=== PATIENT | female | born 1970 | race Caucasian/White ===

== ENCOUNTER 2019-07-20 07:26 | Outpatient (CLI) | payer OTHER, SELFPAY ==
--- NOTE | 2019-07-20 07:36 | MM_ITS ---
WS: [id number] BILATERAL SCREENING DIGITAL MAMMOGRAM WITH CAD HISTORY: SCREENING COMPARISON: 07/04/2017, 06/09/2016 and 09/08/2015 Bilateral CC and MLO views submitted. Computer aided detection analyzed. Breast composition: There are scattered areas of fibroglandular density. No suspicious masses, microc alcifications or architectural distortion. Long-term stability of the nodule in the RIGHT breast near 9:00. No suspicious masses or calcifications. MM/[place] [id number] IMPRESSION: BI-RADS: 2-Benign FOLLOW UP: 1 Year Follow-up
== END 2019-07-20 07:27 | disposition home or self-care (01) ==
LOC: RADSHAW 07:35
PROVIDERS: Family Provider Family Medicine; PCP Family Medicine; Visit Provider Nurse Practitioner Women's Health
DX: Z12.31 Encounter for screening mammogram for malignant neoplasm of breast (principal)
CPT/HCPCS: 77067

== ENCOUNTER 2020-09-09 10:56 | Outpatient (CLI) | payer OTHER, SELFPAY ==
--- NOTE | 2020-09-09 10:59 | MM_ITS ---
WS: [id number] SCREENING DIGITAL MAMMOGRAM WITH CAD HISTORY: SCREENING COMPARISON: 07/20/2019, 07/04/2017 Bilateral CC and MLO views submitted. Computer aided detection analyzed. Breast composition: The breasts are heterogeneously dense, which may obscure small masses. Asymmetry measuring 6 mm along the inferior LEFT breast seen only on the lateral projection. Favor this is prob ably fibroglandular superimposed tissue. MM/[place] [id number] IMPRESSION: BI-RADS: 0-Incomplete: Need additional imaging evaluation FOLLOW UP: Need Additional Imaging LEFT breast: Spot compression views ( MLO). True ML. Ultrasound to follow if ab normality persists.
== END 2020-09-09 10:57 | disposition home or self-care (01) ==
LOC: RADSHAW 10:58
PROVIDERS: Family Provider Family Medicine; PCP Family Medicine; Visit Provider Family Medicine
DX: Z12.31 Encounter for screening mammogram for malignant neoplasm of breast (principal)
CPT/HCPCS: 77067

== ENCOUNTER 2020-09-11 15:18 | Outpatient (CLI) | payer OTHER, SELFPAY ==
--- NOTE | 2020-09-11 15:27 | XR_ITS ---
WS: [id number] Exam: XR acute abdomen series [id number] Date/Time of Exam: 09/11/2020 3:27 PM Reason For Exam: EPIGASTRIC ABDOMINAL PAIN PA chest. The lungs are clear and fully inflated. Normal cardiomediastinal structures and bony elemen ts. Flat and erect views of the abdomen demonstrate no bowel obstruction or free air. Visualized orga n margins are intact. XR/XR acute abdomen series [id number] IMPRESSION: 1. Normal chest. 2. No acute abdominal process.
== END 2020-09-11 15:19 | disposition home or self-care (01) ==
PROVIDERS: PCP Family Medicine; Visit Provider Family Medicine
DX: R10.13 Epigastric pain (principal)
CPT/HCPCS: 74022

== ENCOUNTER 2020-09-25 09:32 | Outpatient (CLI) | payer OTHER, SELFPAY ==
--- NOTE | 2020-09-25 09:36 | US_ITS ---
WS: [id number] ADDITIONAL VIEWS LEFT MAMMOGRAM LEFT BREAST ULTRASOUND HISTORY: ABNORMAL MAMMOGRAM COMPARISON: 09/09/2020, 07/20/2019, 07/04/2017 LEFT MAMMOGRAM: Spot compression views and true ML. 2 nodules are now identified in the lower LEFT breast. These are not optimally seen on the CC project ion. Larger nodule posteriorly is mildly ovoid measuring 9 mm. Smaller nodule measuring 8 mm more ant eriorly. Both of these are slightly ovoid. LEFT BREAST ULTRASOUND 2-D and color Doppler imaging submitted. Ultrasound at 8:00, 2 cm from the nipple demonstrates a small complex cystic mass measuring 6 x 5 mm. There is an additional minimally complex cystic mass at 8:00, 4 cm from nipple measuring 12 x 4 x 10 mm area At 4:00 hypoechoic nodule may be a lymph node measuring 8 x 1 1.0 x 4 mm. US/US breast LT limited* [id number] IMPRESSION: BI-RADS: 3-Probably Benign FOLLOW UP: 6 Month Follow-up 1. There are 2 nodules in the LEFT breast have not been present on prior studi es. These are probably small complex cysts or lymph nodes as seen also by ultra sound. As these are new and not definitely simple cystS recommend 6 month follo w-up. LEFT mammogram follow-up in 6 months. Ultrasound may also be necessary if these areas persist.
== END 2020-09-25 09:33 | disposition home or self-care (01) ==
LOC: RADSHAW 09:34
PROVIDERS: PCP Family Medicine; Visit Provider Family Medicine
DX: R92.8 Other abnormal and inconclusive findings on diagnostic imaging of breast (principal); N63.20 Unspecified lump in the left breast, unspecified quadrant
CPT/HCPCS: 76642; 77065

== ENCOUNTER → 2020-12-30 08:31 | Outpatient (BNVA) | payer OTHER, SELFPAY | PROVIDERS: PCP Family Medicine; Visit Provider Internal Medicine Cardiovascular Disease | DX: E78.00 Pure hypercholesterolemia, unspecified (principal) | CPT/HCPCS: 80061 ==

== ENCOUNTER 2021-02-16 10:02 | Outpatient (CLI) | payer OTHER, SELFPAY ==
[2021-02-16 10:29] VITALS: BMI 30.7
--- NOTE | 2021-02-16 10:30 | ECG_ITS ---
[facility] Test Date: 2021-02-16 Pat Name: Annette Manrique Department: Room: Gender: Female [employer]: : 1970 Requested By: Marj Amaro Order Number: [id number] Victoria MD: MARJ AMARO Interpretive Statements NAME OF STUDY: EXERCISE SESTAMIBI STRESS TEST INDICATION: Sob/palpatations, EXERCISE DATA: The patient was exercised by Antonino protocol. Baseline heart rate was 71 beats per minute. Baseline blood pressure was 107/79 millimeters of mercury. Target heart rate was 172 beats per minute. Maximum heart rate achieved was 157, which was 91 % of the target heart rate. Maximum blood pressure was 174/80 millimeters of mercury. Total exercise time was 8-minute 57 sec. Maximum METs achieved was 10.2, maximum VO2 was 35.7. The reason for ending the test was maximum effort achieved. The patient complained of shortness of breath during the stress test, which then resolved at the end of the test. ELECTROCARDIOGRAM: BASELINE: Sinus rhythm, normal axis, no significant ST-T changes at the baseline noted. EXERCISE: At the peak exercise level, no significant ST-T changes suggestive of ischemia noted. RECOVERY: During the recovery period, heart rate dropped appropriately. No significant ST-T changes in the recovery suggestive of ischemia noted. CONCLUSION: 1. Exercise capacity good. 2. Heart rate response was appropriate. 3. Blood pressure response was appropriate. 4. Symptoms not suggestive of ischemia. 5. Electrocardiogram portion of the stress test was not suggestive of ischemia. 6. Nuclear scan will be documented separately. Electronically Signed On 04-03-2021 19:02:15 COIL STRAPPER by MARJ AMARO [id number]
--- NOTE | 2021-02-16 10:31 | NMCV_ITS ---
NM yasmin perf SPECT r/s* [id number] Annette Manrique Age: 50 Gender: F : 1970 Exam Date: 02/16/2021 10:31 Ordering Phys: Artie Amaro MD ([email or web address]) Technologist: CALVIN Vazquez Exam Location: [facility] Indications: FAMILY HISTORY STRESS TEST [facility] IMAGE PROTOCOL Rest/Stress 1 Exercise Day Radiopharmaceutical Dose (mCi) Administration Site Administered by Rest: Tc-99m 10.8 IV CALVIN Kelly Sestamibi Stress:Tc-99m 32.9 IV CALVIN Kelly Sestamilukasz Rest: 16-Feb-2021 60 Discovery 630 Stress: 16-Feb-2021 30 Discovery 630 Radiopharmaceutical was injected at 85 % maximum heart rate. Images obtained in supine and prone position. SPECT RESULTS Technical Quality: Excellent Raw Data Analysis: Normal Image Corrections: No attenuation or motion correction applied Summed Stress Score: 0 Summed Rest Score: 1 Summed Difference Score: 0 PERFUSION FINDINGS SPECT images demonstrate homogeneous tracer distribution throughout the myocardium. FUNCTIONAL RESULTS (calculated via Gated SPECT) Stress Image LV EF (%): 79 Stress EDV (mL):81 TID: 0.98 Stress ESV (mL):17 Rest Image LV EF (%): 79 FUNCTIONAL FINDINGS: There is normal left ventricular systolic function. IMPRESSIONS Myocardial perfusion imaging is normal and low probability for CAD. EKG segment will be documented separately.. Artie Amaro MD (Electronically Signed) Final Date: 16 February 2021 14:47 S
--- NOTE | 2021-02-16 11:30 | USCV_ITS ---
Annette Manrique Age: 50 Gender: F : 1970 Exam Date: 02/16/2021 13:30 Ordering Phys: Artie Amaro MD ([email or web address]) Technologist: Exam Location: [facility] Indication: FAMILY HX BP: 124 / 72 HR: 73 Rhythm: Sinus Technical Quality: Good MEASUREMENTS (Male / Female) Normal Values 2D ECHO LV Diastolic Diameter PLAX 4.7 cm 4.2 - 5.9 / 3.9 - 5.3 cm LV Systolic Diameter PLAX 2.8 cm IVS Diastolic Thickness 0.8 cm 0.6 - 1.0 / 0.6 - 0.9 cm IVS Systolic Thickness 1.4 cm LVPW Diastolic Thickness 0.9 cm 0.6 - 1.0 / 0.6 - 0.9 cm LVPW Systolic Thickness 1.3 cm LVOT Diameter 2.0 cm LV Ejection Fraction 2D Teich 70.5 % LV Ejection Fraction MOD 2C 69.0 % LV Ejection Fraction 2C AL 70.1 % LA Diameter 3.3 cm LA Width 3.7 cm LA Height 5.3 cm RA Width 3.8 cm RA Height 4.8 cm DOPPLER AV Peak Velocity 152.0 cm/s LVOT Peak Velocity 133.0 cm/s AV Area Cont Eq vti 3.0 cm squared AV Area Cont Eq pk 2.8 cm squared MV Area PHT 5.0 cm squared Mitral E to A Ratio 1.1 MV E' Velocity 39.0 cm/s Mitral E to MV E' Ratio 5.7 Mitral E to LV E' Lateral Ratio 5.6 Mitral E to LV E' Septal Ratio 5.8 TR Peak Velocity 181.7 cm/s TR Peak Gradient 13.2 mmHg TV Peak E Velocity 149.0 cm/s Right Atrial Pressure 3.0 mmHg Pulmonary Artery Systolic Pressu 16.2 mmHg FINDINGS Left Ventricle Normal left ventricular cavity size. Normal left ventricular systolic function. No regional wall motion abnormalities. Left ventricular ejection fraction is estimated at 65 %. Normal diastolic function. Right Ventricle The right ventricle is normal in size and function. Right Atrium The right atrium is normal in size. Left Atrium The left atrium is normal in size. Mitral Valve Structurally normal mitral valve without significant stenosis or prolapse. There is no mitral regurgitation. Aortic Valve Aortic valve sclerosis. No aortic valve stenosis. Trace aortic valve regurgitation. Tricuspid Valve Structurally normal tricuspid valve without significant stenosis or regurgitation. Pulmonary artery systolic pressure is normal. Pulmonic Valve Structurally normal pulmonic valve without significant stenosis. There is no pulmonic regurgitation. Pericardium Normal pericardium without effusion. Aorta Normal ascending aorta dimension. CONCLUSIONS 1-Normal left ventricular cavity size. Normal left ventricular systolic function. No regional wall motion abnormalities. Left ventricular ejection fraction is estimated at 65 %. Normal diastolic function. 2-There is no pericardial effusion. 3-No significant valve abnormalities. 4-Pulmonary artery systolic pressure is within normal limits. 5-Right atrial pressure is around 5 mm of mercury. 6-There are no prior echocardiogram studies to compare. Artie Amaro MD (Electronically Signed) Final Date: 27 February 2021 14:49 S
[2021-02-16 12:24] VITALS: BP 105/68; PULSE 96
== END 2021-02-16 10:03 | disposition home or self-care (01) ==
PROVIDERS: PCP Family Medicine; Visit Provider Internal Medicine Cardiovascular Disease
DX: R00.2 Palpitations (principal); R06.02 Shortness of breath
CPT/HCPCS: 78452; 93017; 93306; A9500

== ENCOUNTER → 2022-03-10 13:12 | Outpatient (BNVA) | payer OTHER, SELFPAY | PROVIDERS: PCP Family Medicine; Visit Provider Clinical Nurse Specialist Adult Health | DX: R53.83 Other fatigue (principal); R68.89 Other general symptoms and signs; M62.830 Muscle spasm of back | CPT/HCPCS: 87426 ==

== ENCOUNTER → 2022-03-11 08:02 | Outpatient (BNVA) | payer OTHER, SELFPAY | PROVIDERS: PCP Family Medicine; Visit Provider Family Medicine | DX: N95.1 Menopausal and female climacteric states (principal); R68.89 Other general symptoms and signs; R53.83 Other fatigue; Z82.49 Family history of ischemic heart disease and other diseases of the circulatory system | CPT/HCPCS: 80053; 83036; 84436; 84443; 84481; 85025 ==

== ENCOUNTER 2022-09-21 08:43 | Outpatient (CLI) | payer OTHER, SELFPAY ==
--- NOTE | 2022-09-21 09:04 | MM_ITS ---
WS: [id number] DIAGNOSTIC BILATERAL DIGITAL BREAST TOMOSYNTHESIS MAMMOGRAPHY WITH CAD LEFT breast ultrasound, limited HISTORY: ABNORMAL MAMMO COMPARISON: 09/25/2020, 09/09/2020 and 07/20/2019 TECHNIQUE: Bilateral craniocaudad, mediolateral oblique, and mediolateral views are submitted with to mosynthesis and SM. Spot compression LEFT CC. Computer aided detection utilized. Breast composition: There are scattered areas of fibroglandular density. Previously described nodular asymmetries in the LEFT breast are less apparent today. There is dense fibroglandular tissue. No dis tortion or mass. Ultrasound will be performed of the LEFT breast at 4:00 and 8:00 as previously recom mended. LEFT breast ultrasound, limited. Complex cystic mass at 8:00, 2 cm from the nipple. There are a few very thin septations. This mass me asures 6 x 4 x 10 mm. There are additional smaller but complex cysts at 8:00 2 cm from the nipple and 4:00 at the areolar. These masses all appear very similar. Some of these have increased in size sinc e the prior study. MM/[place] [id number] IMPRESSION: BI-RADS: 3-Probably Benign FOLLOW UP: 6 Month Follow-up Recommend LEFT breast six-month ultrasound follow-up. 6 month ultrasound follow -up necessary to document stability. Some of these cystic masses have slightly increased in size since the prior study.
== END 2022-09-21 08:44 | disposition home or self-care (01) ==
PROVIDERS: PCP Family Medicine; Visit Provider Nurse Practitioner Women's Health
DX: R92.8 Other abnormal and inconclusive findings on diagnostic imaging of breast (principal); N60.02 Solitary cyst of left breast
CPT/HCPCS: 76642; 77062; G0279

== ENCOUNTER 2023-03-29 12:35 | Outpatient (CLI) | payer OTHER, SELFPAY ==
--- NOTE | 2023-03-29 12:45 | US_ITS ---
WS: [id number] ULTRASOUND LEFT BREAST, limited HISTORY: 6-month follow-up complex cystic masses. COMPARISON: 09/21/2022 TECHNIQUE: 2-D and Doppler. Complex cystic mass at 8:00, 2 cm from the nipple is reidentified measuring 5 x 8 x 3 mm which has sl ightly decreased in size. Additional complex cystic mass at 4:00 at the areola reidentified measuring 9 x 9 x 5 mm. Both of these masses are stable. No solid mass or increased vascularity. IMPRESSION: US/US breast LT limited* [id number] BI-RADS: 3-Probably Benign FOLLOW-UP: 6 Month Follow-up Patient to return to annual screening mammogram. Annual mammogram should be per formed in September 2023. No additional ultrasound will be necessary unless there is an interval change.
== END 2023-03-29 12:36 | disposition home or self-care (01) ==
LOC: RAD 12:35
PROVIDERS: PCP Family Medicine; Visit Provider Nurse Practitioner Women's Health
DX: R92.8 Other abnormal and inconclusive findings on diagnostic imaging of breast (principal)
CPT/HCPCS: 76642

== ENCOUNTER → 2023-07-29 08:30 | Outpatient (BNVA) | payer OTHER, SELFPAY | PROVIDERS: PCP Family Medicine; Visit Provider Family Medicine | DX: Z12.11 Encounter for screening for malignant neoplasm of colon (principal); J06.9 Acute upper respiratory infection, unspecified; F41.9 Anxiety disorder, unspecified; F17.200 Nicotine dependence, unspecified, uncomplicated; M54.12 Radiculopathy, cervical region | CPT/HCPCS: 87400; 87426 ==

== ENCOUNTER 2023-08-16 13:33 | Outpatient (CLI) | payer OTHER, SELFPAY ==
--- NOTE | 2023-08-16 13:45 | XR_ITS ---
WS: [id number] Examination: XR cervical spine 3V* [id number] Reason for Exam: M54.2 - Cervicalgia Date: August 16, 2023 Comparison: None. Findings: The DEDRICK and the C1-2 relationship are intact. There is no prevertebral swelling There is no dominant wedging or compression There is subtle anterolisthesis at C6-7 Diffusely the disc spaces are narrowed. There are small posterior and anterior osteophytes. Impression: There is no compression. There is subtle C6-7 anterior offset. Diffuse degenerative disc disease is p resent.
--- NOTE | 2023-08-16 13:45 | MR_ITS ---
WS: [id number] MRI CERVICAL SPINE NONCONTRAST HISTORY: M54.12 - Radiculopathy, cervical region COMPARISON: None available. Technique: Multiplanar, multisequence noncontrast imaging of the cervical spine. Straightening of the normal cervical lordosis. No acute fractures and no marrow edema. Mild haziness in smudginess in the cervical cord at the C5-6 level highly suspicious for developing m yelomalacia and cord edema. There is no atrophy or enlargement. Craniocervical junction, C1 and C2 relationship, odontoid process and soft tissues are normal. C2-C3: Very small LEFT foraminal osteophytes. No significant stenosis. C3-C4: Small bilateral foraminal osteophytes with mild foraminal narrowing. No significant facet arth ritis. Slightly greater osteophyte encroachment on the LEFT. C4-C5: Mild annular disc bulging with osteophytic ridging. Small bilateral foraminal osteophytes and mild facet arthritis. There is mild encroachment upon the ventral thecal sac. Mild central and RIGHT foraminal stenosis. Moderate LEFT foraminal stenosis. C5-C6: Diffuse annular disc bulging with osteophytic ridging. Mild facet arthritis. Moderate central with bilateral moderate foraminal stenosis due to osteophytosis predominantly. C6-C7: Mild annular disc bulging and osteophytic ridging. Bilateral foraminal disc osteophyte complex es. Mild central and bilateral foraminal stenosis. C7-T1: Normal. Paraspinal soft tissue are normal. IMPRESSION: 1. Subtle increased T2 signal in the cervical cord centered at C5-6. Highly suspicious for an area o f edema or developing myelomalacia. 2. C5-6: Moderate central and bilateral foraminal stenosis predominant osteophytes. 3. C6-7: Mild central and bilateral foraminal stenosis due to osteophyte and disc disease. 4. C4-5: Mild central and RIGHT foraminal stenosis. Moderate LEFT foraminal stenosis due to osteophy te and disc disease. 5. C3-4: Small bilateral foraminal osteophytes with mild foraminal narrowing.
== END 2023-08-16 13:34 | disposition home or self-care (01) ==
LOC: RAD 13:33
PROVIDERS: PCP Family Medicine; Visit Provider Anesthesiology Pain Medicine
DX: G89.29 Other chronic pain (principal); M50.30 Other cervical disc degeneration, unspecified cervical region; M48.02 Spinal stenosis, cervical region
CPT/HCPCS: 72040; 72141

== ENCOUNTER → 2023-08-25 10:30 | Outpatient (BNVA) | payer OTHER, SELFPAY | PROVIDERS: PCP Family Medicine; Visit Provider Nurse Practitioner Women's Health | DX: R53.83 Other fatigue; Z13.0 Encounter for screening for diseases of the blood and blood-forming organs and certain disorders involving the immune mechanism; Z13.228 Encounter for screening for other metabolic disorders; N95.1 Menopausal and female climacteric states; I49.3 Ventricular premature depolarization; Z13.1 Encounter for screening for diabetes mellitus; Z79.899 Other long term (current) drug therapy | CPT/HCPCS: 80053; 82306; 82670; 83001; 83036; 84402; 84443; 85025 ==

== ENCOUNTER 2023-09-27 06:52 | Day surgery (SDC) | payer OTHER, SELFPAY ==
--- NOTE | 2023-09-27 06:15 | P.HP_ITS ---
Same Day Surgery H&P Indication for Procedure/HPI DATE OF PROCEDURE: September 27, 2023 CHIEF COMPLAINT/INDICATIONFOR SURGICAL PROCEDURE: encounter for screening colonoscopy PREOP DIAGNOSIS: same PLANNED PROCEDURE: Operation Date: 09/27/23 07:55 Proposed Procedures p Colonoscopy(Not Applicable) - Tramaine Mcgarry MD Medications/Allergies* Home Medications Medication Instructions Recorded Confirmed Type aspirin 81 mg tablet,delayed 81 mg PO QDAY 06/11/19 09/22/23 History release vitamin E (dl, acetate) 450 mg 1,000 unit PO QDAY 06/11/19 09/22/23 History (1,000 unit) capsule acetaminophen 325 mg tablet 325 mg PO QID PRN Pain 12/29/20 09/22/23 History ibuprofen 200 mg tablet 200 mg PO Q6H PRN Pain 12/29/20 09/22/23 History topiramate 50 mg tablet 50 mg PO BID PRN pain 08/25/23 09/22/23 History Allergies/Adverse Reactions 3 Allergy/AdvReac Type Severity Reaction Status Date / Time No Known Allergies Allergy Verified 08/25/23 08:54 Pertinent History/Comorbid Conditions* Medical History (Updated 08/25/23 @ 12:48 by Madeline Faust APN, FRIEDA) No pertinent past medical history neghx:htn,dm,thyroid,dvt/pe PCP: Dr. Alen MCDERMOTT (stress urinary incontinence, female) Midline cystocele Menopausal syndrome Surgical History (Updated 06/11/19 @ 13:30 by Madeline Andrade RN) History of hysterectomy (~2002) -Patient had a laparoscopic hysterectomy with removal of one ovary (patient is not sure but she thinks her left ovary was the one that was removed) this was done by Dr. Ojeda in 2002. She states she had the surgery for endometriosis, cysts and heavy periods. Patient states that after surgery she was told everything was normal and there was no cancer or precancer. Family History (Updated 08/18/21 @ 11:30 by Kathryn Catherine RN) Diabetes Mother CAD (coronary artery disease) Mother, Onset Age: 43 Sister, Onset Age: 50 Sister, Onset Age: 50 Family/Other Dementia Grandmother Heart disease Mother Hypercholesteremia Mother Myocardial infarct Mother Sister Cancer Son Stage 4 colon CA Hypertension Mother Stroke Grandmother Denies family history of Clotting disorder Chronic kidney disease (CKD) Suicide Anesthesia complication Bleeding disorder Lung disease Social History Smoking and tobacco/nicotine status: former use of tobacco/nicotine Quit status (tobacco/nicotine): has quit using Year quit tobacco: 06/2023 Former quit date comment: Smoked 39 years at 05/17 ppd Alcohol intake: never Substance/Drug Use: never Marital status: / Marital status details: 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
[2023-09-27 07:05] VITALS: BP 104/67; PULSE 78; RESP 18; TEMP 36.7; O2SAT 96; BMI 31.6
[2023-09-27] MEDS: sodium chloride 0.9% 1,000 ML 30 ML IV (07:13)
--- NOTE | 2023-09-27 07:31 | ANES.PREANE2 ---
Pre-Anesthetic Assessment Height/Weight: Height 1.65 m Weight 86.183 kg Temp Pulse Resp BP Pulse Ox O2 Del Method 98.1 F 78 18 104/67 96 Room Air 09/27/23 07:05 09/27/23 07:05 09/27/23 07:05 09/27/23 07:05 09/27/23 07:05 09/27/23 07:05 Preop Diagnosis: same Operation Date: 09/27/23 07:55 Proposed Procedures p Colonoscopy(Not Applicable) - Tramaine Mcgarry MD Last intake: Intake Last Liquid Date 09/26/23 Last Liquid Time 22:00 Last Solid Date 09/25/23 Last Solid Time 22:00 Social No tobacco Exam alert, oriented x 3, clear to auscultation bilaterally and regular rate & rhythm Airway Submandibular: within normal limits Cervical ROM: within normal limits Mallampati: Class I History/ROS No significant history except as noted Pulmonary None reported CV/HEM None reported GI None reported Anesthetic Plan ASA status: 2 Anesthesia: MAC Medications/Allergies Home Medications Medication Instructions Recorded Confirmed Last Taken Type aspirin 81 mg tablet,delayed 81 mg PO QDAY 06/11/19 09/27/23 09/26/23 History release vitamin E (dl, acetate) 450 mg 1,000 unit PO QDAY 06/11/19 09/27/23 09/26/23 History (1,000 unit) capsule acetaminophen 325 mg tablet 325 mg PO QID PRN Pain 12/29/20 09/27/23 Unknown History ibuprofen 200 mg tablet 200 mg PO Q6H PRN Pain 12/29/20 09/27/23 09/26/23 History conjugated estrogens 1.25 mg 1.25 mg PO DAILY #90 tabs 08/17/22 09/27/23 09/26/23 Rx tablet (Premarin) bupropion HCl 150 mg tablet,12 hr 150 mg PO BID #60 tabs 06/20/23 09/27/23 09/26/23 Rx sustained-release (Wellbutrin SR) citalopram 10 mg tablet 10 mg PO DAILY #30 tabs 07/19/23 09/27/23 09/26/23 Rx topiramate 50 mg tablet 50 mg PO BID PRN pain 08/25/23 09/27/23 09/26/23 History progesterone micronized 100 mg 100 mg PO BEDTIME #90 caps 08/30/23 09/27/23 09/26/23 Rx capsule (Prometrium) cyclobenzaprine 10 mg tablet 10 mg PO TID PRN muscle spasm #60 09/01/23 09/27/23 09/25/23 Rx tabs cholecalciferol (vitamin D3) 50 50 mcg PO DAILY 09/27/23 09/27/23 09/26/23 History mcg (2,000 unit) tablet (Vitamin D3) Allergies Allergy/AdvReac Type Severity Reaction Status Date / Time No Known Allergies Allergy Verified 09/27/23 07:02 Current Medications Generic Name Dose Route Start Last Admin Trade Name Freq PRN Reason Stop Dose Admin Sodium Chloride 1,000 mls @ 30 mls/hr 09/27/23 07:00 09/27/23 07:13 Sodium Chloride 0.9% IV 30 mls/hr .Q24H CHIRAG Administration PFSH Anesthesia Medical History No pertinent past medical history neghx:htn,dm,thyroid,dvt/pe PCP: Dr. Alen MCDERMOTT (stress urinary incontinence, female) Midline cystocele Menopausal syndrome Surgical History History of hysterectomy (~2002) -Patient had a laparoscopic hysterectomy with removal of one ovary (patient is not sure but she thinks her left ovary was the one that was removed) this was done by Dr. Ojeda in 2002. She states she had the surgery for endometriosis, cysts and heavy periods. Patient states that after surgery she was told everything was normal and there was no cancer or precancer. Family History Mother Diabetes Hypertension Heart disease Hypercholesteremia Myocardial infarct CAD (coronary artery disease), Onset Age: 43 Sister Myocardial infarct CAD (coronary artery disease), Onset Age: 50 Son Cancer Stage 4 colon CA Sister CAD (coronary artery disease), Onset Age: 50 Family/Other CAD (coronary artery disease) Grandmother Stroke Dementia Denies family history of Clotting disorder Chronic kidney disease (CKD) Suicide Anesthesia complication Bleeding disorder Lung disease Social History Smoking and tobacco/nicotine status: former use of tobacco/nicotine Quit status (tobacco/nicotine): has quit using Year quit tobacco: 06/2023 Former quit date comment: Smoked 39 years at 05/17 ppd Alcohol intake: never Substance/Drug Use: never Marital status: / Marital status details: 10/2022 from mesenteric ischemia Data Anesthesia Cardiac Studies: Echocardiogram 02/16/21 Sestamibi Stress Test (Cardiology) 02/16/21
[2023-09-27 08:15] VITALS: BP 89/57; PULSE 67; RESP 18; TEMP 36.3; O2SAT 95
[2023-09-27 08:29] VITALS: BP 107/65; PULSE 60; RESP 18; O2SAT 96
--- NOTE | 2023-09-27 13:37 | P.ANESPOST_ITS ---
Inpatient post-anesthesia follow up: Vital signs: Temperature 97.4 F Pulse Rate 60 Respiratory Rate 18 Blood Pressure 107/65 Pulse Oximetry 96 Oxygen Delivery Me thod Room Air Oxygen Flow Rate Fraction of Inspir ed Oxygen Hydration adequate: Yes Nausea and vomiting: No Pain level: con trolled Mental status: Baseline Additional Comments: no apparent anesthetic complications noted
== END 2023-09-27 08:45 | disposition home or self-care (01) ==
PROVIDERS: PCP Family Medicine; Visit Provider Surgery
PROC: 0DJD8ZZ Inspection of Lower Intestinal Tract, Via Natural or Artificial Opening Endoscopic (ICD-10-PCS; CPT 45378; principal; 2023-09-27 07:55)
DX: Z12.11 Encounter for screening for malignant neoplasm of colon (principal); K63.5 Polyp of colon
CPT/HCPCS: 45380; 88305; J2704; J7030

== ENCOUNTER → 2024-05-07 12:31 | Outpatient (BNVA) | payer OTHER, SELFPAY | PROVIDERS: PCP Family Medicine; Visit Provider Family Medicine | DX: Z51.81 Encounter for therapeutic drug level monitoring (principal); L65.9 Nonscarring hair loss, unspecified | CPT/HCPCS: 80053; 84439; 84443; 85025 ==

== ENCOUNTER 2024-05-23 09:53 | Outpatient (CLI) | payer OTHER, SELFPAY ==
[2024-05-23 10:35] LABS: Ferritin 202 ng/mL (15-150); Iron 120 ug/dL (37-145); Percent Saturation 48.1 % (20-50); Total Iron Binding Capacity 249 mcg/dl; Unsaturated Iron Binding 129 ug/dL (112-347)
== END 2024-05-23 09:54 | disposition home or self-care (01) ==
PROVIDERS: PCP Family Medicine; Visit Provider Nurse Practitioner Family
DX: L65.0 Telogen effluvium (principal)
CPT/HCPCS: 36415; 82728; 83540; 83550

== ENCOUNTER → 2024-08-09 09:54 | Outpatient (BNVA) | payer OTHER, SELFPAY | PROVIDERS: PCP Family Medicine; Visit Provider Orthopaedic Surgery | DX: M79.642 Pain in left hand (principal); M65.342 Trigger finger, left ring finger | CPT/HCPCS: 73130 ==

== ENCOUNTER → 2024-08-30 10:21 | Outpatient (BNVA) | payer OTHER, SELFPAY | PROVIDERS: PCP Family Medicine; Visit Provider Nurse Practitioner Women's Health | DX: N95.1 Menopausal and female climacteric states (principal) | CPT/HCPCS: 82670; 83001 ==

== ENCOUNTER 2024-09-05 15:14 | Outpatient (CLI) | payer OTHER, SELFPAY ==
--- NOTE | 2024-09-05 15:20 | MM_ITS ---
WS: [id number] BILATERAL 3D TOMOSYNTHESIS DIGITAL SCREENING MAMMOGRAPHY WITH CAD CLINICAL INFORMATION: Z12.31 - Encounter for screening mammogram for malignant ... HISTORY: Screening mammogram. No current complaints. COMPARISON: 2022 TECHNIQUE: Bilateral CC and MLO views. FINDINGS: The breasts are composed of heterogeneous fibroglandular density tissue, which can limit the detection of small underlying mass lesions. No suspicious mass, asymmetry, calcifications, or architectural distortion. No evidence of malignancy. Incidental punctate calcifications. MM/MM [facility] tomosynthesis [id number] IMPRESSION: DENSITY: The breasts are heterogeneously dense, which may obscure small masses. BI-RADS: 2 - Benign FOLLOW UP: 1 Year Follow-up Recommend return to annual screening mammography.
== END 2024-09-05 15:15 | disposition home or self-care (01) ==
PROVIDERS: PCP Family Medicine; Visit Provider Nurse Practitioner Women's Health
DX: Z12.31 Encounter for screening mammogram for malignant neoplasm of breast (principal); N95.1 Menopausal and female climacteric states; R92.333 Mammographic heterogeneous density, bilateral breasts; R92.1 Mammographic calcification found on diagnostic imaging of breast
CPT/HCPCS: 77063; 77067

== ENCOUNTER → 2024-10-25 11:48 | Outpatient (BNVA) | payer OTHER, SELFPAY | PROVIDERS: PCP Family Medicine; Visit Provider Nurse Practitioner Women's Health | DX: G47.9 Sleep disorder, unspecified (principal); R53.83 Other fatigue | CPT/HCPCS: 82306; 82607; 83525 ==

== ENCOUNTER → 2024-12-12 11:33 | Outpatient (BNVA) | payer OTHER, SELFPAY | PROVIDERS: PCP Family Medicine; Visit Provider Family Medicine | DX: J06.9 Acute upper respiratory infection, unspecified (principal) | CPT/HCPCS: 87426 ==

== ENCOUNTER → 2025-02-25 08:33 | Outpatient (BNVA) | payer OTHER, SELFPAY | PROVIDERS: PCP Family Medicine; Visit Provider Nurse Practitioner Women's Health | DX: Z79.890 Hormone replacement therapy (principal) | CPT/HCPCS: 84270; 84402; 84403 ==

== ENCOUNTER → 2025-04-22 08:23 | Outpatient (BNVA) | payer OTHER, SELFPAY | PROVIDERS: PCP Family Medicine; Visit Provider Family Medicine Adult Medicine | DX: R39.89 Other symptoms and signs involving the genitourinary system (principal) | CPT/HCPCS: 81000 ==

== ENCOUNTER → 2025-04-30 08:26 | Outpatient (BNVA) | payer OTHER, SELFPAY | PROVIDERS: PCP Family Medicine; Visit Provider Nurse Practitioner Women's Health | DX: R53.83 Other fatigue (principal); R68.82 Decreased libido | CPT/HCPCS: 84403 ==